=== PATIENT | male | born 1985 | race African-American/Black ===

== ENCOUNTER → 2016-04-12 | Outpatient (CLI) | payer OTHER ==
[~2016-04-12] MED LIST: BACT800T5 PO; LITH150C PO; LITH1TAB4 PO; MED REC COMPLETE; TRAZ50TA4 PO
[2016-04-12 13:53] LABS: BLOOD UREA NITROGEN 16 MG/DL (7-18); CREATININE FOR GFR 0.86 MG/DL (0.70-1.30); GLOMERULAR FILTRATION RATE > 60.0 (>60)
[2016-04-12 13:54] LABS: LITHIUM LEVEL 0.43 MEQ/L (0.60-1.20)
[2016-04-12 13:58] LABS: MEAN CORPUSCULAR HEMOGLOBIN 31.1 pg (27.0-33.0); MEAN CORPUSCULAR HGB CONC 33.5 g/dl (32.0-36.5); MEAN CORPUSCULAR VOLUME 92.9 fl (80.0-96.0); RED CELL DISTRIBUTION WIDTH 11.8 % (11.5-14.5); WHITE BLOOD COUNT 3.1 K/mm3 (4.0-10.0)
== END ==
LOC: M LAB 12:30
PROVIDERS: ATTEND Psychiatry & Neurology Psychiatry
DX: Z79.899 Other long term (current) drug therapy (principal)

== ENCOUNTER 2016-10-14 14:19 | Emergency (ER) | payer OTHER ==
[~2016-10-14] VITALS: Ht 167.6 cm; Wt 56.8 kg
[~2016-10-14 14:19] MED LIST changes: +TRAZ50TA11 PO; -TRAZ50TA4 PO
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
[2016-10-14 17:03] LABS: METHADONE URINE NEGATIVE (NEGATIVE)
[2016-10-14 17:24] VITALS: BP 142/76
== END 2016-10-14 17:27 | disposition home or self-care (01) ==
LOC: M ED 14:19
DX: F10.120 Alcohol abuse with intoxication, uncomplicated (principal); K52.9 Noninfective gastroenteritis and colitis, unspecified

== ENCOUNTER 2018-11-27 14:01 | Emergency (ER) | payer OTHER, SELFPAY ==
[~2018-11-27] VITALS: Ht 167.6 cm; Wt 55.9 kg
[~2018-11-27 14:01] MED LIST changes: +TRAZ-252 PO; -TRAZ50TA11 PO
[2018-11-27 16:13] LABS: CHLAMYDIA DNA AMPLIFICATION NEGATIVE (NEGATIVE); GC DNA AMPLIFICATION NEGATIVE (NEGATIVE)
[2018-11-27 16:31] VITALS: BP 116/71
[2018-11-28 10:47] LABS: HEPATITIS A ANTIBODY IGM NEGATIVE (NEGATIVE); HEPATITIS B CORE ANTIBODY IGM NEGATIVE (NEGATIVE); HEPATITIS B SURFACE ANTIGEN NEGATIVE (NEGATIVE); HEPATITIS C VIRUS ABY INDEX 0.1 INDEX (<0.8)
== END 2018-11-27 16:39 | disposition home or self-care (01) ==
LOC: M ED 14:01
DX: Z20.2 Contact with and (suspected) exposure to infections with a predominantly sexual mode of transmission (principal); F17.200 Nicotine dependence, unspecified, uncomplicated